=== PATIENT | female | born 1975 | race Two or more races ===

== ENCOUNTER 2019-03-03 09:29 | Emergency (ER) | payer SELFPAY ==
[2019-03-03] MEDS ORDERED: FENTANYL CITRATE INJ/PF 100 MCG/2 ML AMPUL IV ONE (09:58)
[2019-03-03] MEDS ORDERED: ONDANSETRON HCL INJ/PF 4 MG/2 ML SDV IV ONE (09:58)
--- NOTE | 2019-03-03 10:00 | ER Document Report ---
ED Medical Screen (RME) - General Chief Complaint: Abdominal Pain Stated Complaint: STOMACH PAIN Time Seen by Provider: 03/03/19 09:54 Notes: Patient is a 43-year-old female presents to the emergency department for right upper quadrant and epigastric abdominal pain. States 1 week ago she had bad pain for about a day. States pain is somewhat subsided and then returned to the last 24 hours. Patient is also complaining of generalized nausea. Patient is denying any vomiting or diarrhea, denies fever, denies dysuria. GENERAL: Alert, interacts well. No acute distress. ABDOMEN: Soft, Non-distended. Bowel sounds present in all 4 quadrants. Generalized right upper quadrant and epigastric abdominal pain noted. I have greeted and performed a rapid initial assessment of this patient. A comprehensive ED assessment and evaluation of the patient, analysis of test results and completion of the medical decision making process will be conducted by additional ED providers. I have specifically instructed the patient or family members with the patient to immediately return to any nursing staff should anything change in the patient's condition or with their chief complaint. This medical record was dictated with voice recognizing software. There may be grammatical, syntax errors that are unintended. TRAVEL OUTSIDE OF THE [place] IN LAST 30 DAYS: No - Related Data Allergies/Adverse Reactions: No Known Allergies Allergy (Verified 01/28/16 16:18) Past Medical History - Social History Family history: DM Pulmonary Medical History: Reports: Hx Asthma - Immunizations Hx Diphtheria, Pertussis, Tetanus Vaccination: No Physical Exam - Vital signs Vitals: Temp Pulse Resp BP Pulse Ox 97.5 F 60 18 101/52 L 95 03/03/19 09:37 03/03/19 09:37 03/03/19 09:37 03/03/19 09:37 03/03/19 09:37 Course - Vital Signs Vital signs: Temp Pulse Resp BP Pulse Ox 97.5 F 60 18 101/52 L 95 03/03/19 09:37 03/03/19 09:37 03/03/19 09:37 03/03/19 09:37 03/03/19 09:37
[2019-03-03 10:33] LABS: ABSOLUTE BASOPHILS # (AUTO) 0.1 10^3/uL (0.0-0.2); ABSOLUTE EOSINOPHILS # (AUTO) 0.3 10^3/uL (0.0-0.6); ABSOLUTE LYMPHOCYTES (AUTO) 2.2 10^3/uL (0.5-4.7); ABSOLUTE MONOCYTES (AUTO) 0.7 10^3/uL (0.1-1.4); ABSOLUTE NEUT (AUTO) 6.6 10^3/uL (1.7-8.2); BASOPHILS % (AUTO) 0.8 % (0-2); EOSINOPHILS % (AUTO) 2.6 % (0-6); HEMATOCRIT 43.3 % (36.0-47.0); HEMOGLOBIN 14.8 g/dL (12.0-15.5); MEAN CORPUSCULAR HEMOGLOBIN 30.3 pg (27.0-33.4); MEAN CORPUSCULAR HGB CONC 34.1 g/dL (32.0-36.0); MEAN CORPUSCULAR VOLUME 89 fl (80-97); MONOCYTES % (AUTO) 7.5 % (3-13); PLATELET COUNT 416 10^3/uL (150-450); RED BLOOD COUNT 4.88 10^6/uL (3.72-5.28); RED CELL DISTRIBUTION WIDTH 13.7 % (11.5-14.0); SEGMENTED NEUTROPHILS % (AUTO) 67.1 % (42-78); TOTAL CELLS COUNTED % (AUTO) 100 %; WHITE BLOOD COUNT 9.9 10^3/uL (4.0-10.5)
[2019-03-03 10:39] LABS: APPEARANCE,URINE SLIGHTLY-CLOUDY; BILIRUBIN,URINE NEGATIVE (NEGATIVE); COLOR,URINE YELLOW; GLUCOSE, URINE NEGATIVE (NEGATIVE); KETONES,URINE NEGATIVE (NEGATIVE); LEUKOCYTE ESTERASE,URINE NEGATIVE (NEGATIVE); NITRITE,URINE NEGATIVE (NEGATIVE); PROTEIN,URINE NEGATIVE (NEGATIVE); URINE SPECIFIC GRAVITY 1.021; UROBILINOGEN,URINE NEGATIVE mg/dL (<2.0)
[2019-03-03 11:01] LABS: ALANINE AMINOTRANSFERASE 22 U/L (9-52); ALBUMIN 4.6 g/dL (3.5-5.0); ALKALINE PHOSPHATASE 106 U/L (38-126); ANION GAP 8 (5-19); ASPARTATE AMINO TRANSFERASE 29 U/L (14-36); BILIRUBIN,DIRECT 0.2 mg/dL (0.0-0.4); BILIRUBIN,TOTAL 0.5 mg/dL (0.2-1.3); BLOOD UREA NITROGEN 20 mg/dL (7-20); CALCIUM 9.1 mg/dL (8.4-10.2); CARBON DIOXIDE 26 mmol/L (22-30); CHLORIDE 106 mmol/L (98-107); GLUCOSE 126 mg/dL (75-110); POTASSIUM 3.9 mmol/L (3.6-5.0); TOTAL PROTEIN 8.2 g/dL (6.3-8.2)
--- NOTE | 2019-03-03 11:07 | ER Document Report ---
ED General - General Chief Complaint: Abdominal Pain Stated Complaint: STOMACH PAIN Time Seen by Provider: 03/03/19 09:54 TRAVEL OUTSIDE OF THE [place] IN LAST 30 DAYS: No - HPI Notes: Patient is a 43-year-old female who presents to the emergency department for evaluation of abdominal and back pain. She states is been going on for the last 3 days, seems to be worse over the last 24 hours. She has had some associated nausea but no vomiting. Nothing seems to make the pain worse. She states that mildly reclining, with her fist in her back, seems to make her pain better. She denies any fevers or chills. Normal bowel movements. No urinary symptoms. No vaginal discharge. She states the pain is sharp and cramping, currently rates it a 4 out of 5. - Related Data Allergies/Adverse Reactions: No Known Allergies Allergy (Verified 01/28/16 16:18) Past Medical History - General Information source: Patient - Social History Smoking Status: Never Smoker Chew tobacco use (# tins/day): No Frequency of alcohol use: None Drug Abuse: None Family History: Reviewed & Not Pertinent Patient has suicidal ideation: No Patient has homicidal ideation: No Pulmonary Medical History: Reports: Hx Asthma Renal/ Medical History: Denies: Hx Peritoneal Dialysis - Immunizations Hx Diphtheria, Pertussis, Tetanus Vaccination: No Review of Systems - Review of Systems Constitutional: No symptoms reported EENT: No symptoms reported Cardiovascular: No symptoms reported Respiratory: No symptoms reported Gastrointestinal: See HPI Genitourinary: No symptoms reported Female Genitourinary: No symptoms reported Musculoskeletal: No symptoms reported Skin: No symptoms reported Neurological/Psychological: No symptoms reported Physical Exam - Vital signs Vitals: Temp Pulse Resp BP Pulse Ox 97.5 F 60 18 101/52 L 95 03/03/19 09:37 03/03/19 09:37 03/03/19 09:37 03/03/19 09:37 03/03/19 09:37 - Notes Notes: Vital signs reviewed, please refer to chart. Head is normocephalic, atraumatic. Pupils equal round, reactive to light. Neck is supple without meningismus. Heart is regular rate and rhythm. Lungs are clear to auscultation bilaterally. Abdomen is soft, minimal epigastric and moderate right upper quadrant tenderness without rebound or guarding, normoactive bowel sounds throughout. Extremities without cyanosis, clubbing. Posterior calves are nontender. Peripheral pulses are equal. Skin is warm and dry. Patient is awake, alert, neurological exam is nonfocal. Course - Re-evaluation Re-evalutation: 03/03/19 12:38 Patient presents emergency department for evaluation of epigastric and right upper quadrant pain. Laboratory investigations were obtained. Ultrasound was ordered as well. Patient was feeling improved after pain medication. Laboratory investigations did not reveal any elevated faded LFTs or signs of infection. Ultrasound failed to reveal any dilation of the CBD, signs of common bile duct stones, or signs of cholecystitis. On serial abdominal exams patient is tender but nonsurgical. We had a lengthy discussion regarding gallstones, dietary changes, and evaluation for cholecystectomy. She has no signs of infection or obstruction at this time. She is given a list of these signs, including but not limited to fever, increased pain, yellowing of the skin or eyes, tea colored urine. She is told if she experiences any of the symptoms she needs to return immediately. She voiced understanding. Otherwise I will give her a referral on to [facility], as well as Dr. Bosch, our on-c all surgeon. We will send her home with Liudmila. She is to follow-up next week, return to the ED with worsening or new concerning symptoms of any sort. - Vital Signs Vital signs: Temp Pulse Resp BP Pulse Ox 97.5 F 60 18 101/52 L 95 03/03/19 09:37 03/03/19 09:37 03/03/19 09:37 03/03/19 09:37 03/03/19 09:37 - Laboratory Result Diagrams: 03/03/19 10:17 03/03/19 10:17 Laboratory results interpreted by me: 03/03/19 03/03/19 10:17 10:17 Creatinine 0.51 L Glucose 126 H Urine Blood SMALL H - Diagnostic Test Radiology reviewed: Reports reviewed Radiology results interpreted by co: 03/03/19 12:35 Abdomen Ultrasound 03/03/19 09:57 IMPRESSION: Gallstones. No gallbladder wall thickening. No pericholecystic fluid. No biliary ductal dilation. Negative sonographic Whitten's sign. HIDA may be used to further evaluate patency of the cystic and common bile ducts if desired. Discharge - Discharge Clinical Impression: Upper abdominal pain Cholelithiasis Qualifiers: Cholelithiasis location: gallbladder Cholecystitis presence: without cholecystitis Biliary obstruction: without biliary obstruction Qualified Code(s): K80.20 - Calculus of gallbladder without cholecystitis without obstruction Condition: Stable Disposition: HOME, SELF-CARE Instructions: Abdominal Pain ([facility]), Antispasmodics ([facility]), Gallbladder Disease ([facility]) Additional Instructions: Take medications as needed. Try to avoid fatty and greasy foods. You should follow-up with primary care and/or surgery to have evaluation to have your gallbladder removed. If you develop fever, increased pain, yellowing of the skin or eyes, or any other new or concerning symptoms, return immediately to the emergency department for reevaluation. Prescriptions: Ondansetron HCl [Zofran 8 mg Tablet] 8 mg PO Q8HP PRN #30 tablet PRN Reason: Nausea Dicyclomine HCl [Bentyl 20 mg Tablet] 20 mg PO QID PRN #40 tablet PRN Reason: Pain Scale Of 4 Ref[facility]: [facility] [NO LOCAL MD] - Follow up as needed ELISEO BOSCH MD [YAY[facility]ECKWITH] - Follow up as needed
--- NOTE | 2019-03-03 11:18 | RADIOLOGY REPORT (SQ) ---
EXAM DESCRIPTION: U/S ABDOMEN LIMITED W/O DOP COMPLETED DATE/TIME: 03/03/2019 11:01 am REASON FOR STUDY: RUQ pain COMPARISON: None. TECHNIQUE: Dynamic and static grayscale images acquired of the abdomen and recorded on PACS. Additio nal selected color Doppler and spectral images recorded. LIMITATIONS: None. FINDINGS: PANCREAS: No masses. Visualized pancreatic duct normal caliber. LIVER: No masses. Echotexture normal. LIVER VASCULATURE: Normal directional flow of the main portal vein and hepatic veins. GALLBLADDER: Shadowing gallstones. Normal wall thickness. No pericholecystic fluid. ULTRASOUND-DETECTED WHITTEN'S SIGN: Negative. INTRAHEPATIC DUCTS AND COMMON DUCT: CBD and intrahepatic ducts normal caliber. No filling defects. INFERIOR VENA CAVA: Normal flow. AORTA: No aneurysm. RIGHT KIDNEY: Normal size. Normal echogenicity. No solid or suspicious masses. No hydronephrosis. No calcifications. PERITONEAL AND RIGHT PLEURAL SPACE: No ascites or effusions. OTHER: No other significant findings. IMPRESSION: Gallstones. No gallbladder wall thickening. No pericholecystic fluid. No biliary duct al dilation. Negative sonographic Whitten's sign. HIDA may be used to further evaluate patency of th e cystic and common bile ducts if desired. TECHNICAL DOCUMENTATION: JOB ID: [id number] [employer]- All Rights Reserved Reading location - IP/workstation name: [email or web address]
[2019-03-03 13:28] VITALS: BP 99/70
== END 2019-03-03 13:28 | disposition home or self-care (01) ==
LOC: ER 09:29
DX: K80.20 Calculus of gallbladder without cholecystitis without obstruction (principal); R10.10 Upper abdominal pain, unspecified; R11.0 Nausea; M54.9 Dorsalgia, unspecified
CPT/HCPCS: 99284; 96374; 96375; 36415; 84702; 83690; 85025; 80053; 81001; 76705; J3010; J2405

== ENCOUNTER 2019-04-07 11:22 | Day surgery (SDC) | payer OTHER ==
[2019-03-31 09:51] LABS: HEMATOCRIT 40.5 % (36.0-47.0); HEMOGLOBIN 13.6 g/dL (12.0-15.5); MEAN CORPUSCULAR HEMOGLOBIN 29.6 pg (27.0-33.4); MEAN CORPUSCULAR HGB CONC 33.5 g/dL (32.0-36.0); MEAN CORPUSCULAR VOLUME 88 fl (80-97); PLATELET COUNT 330 10^3/uL (150-450); RED BLOOD COUNT 4.59 10^6/uL (3.72-5.28); RED CELL DISTRIBUTION WIDTH 13.4 % (11.5-14.0)
--- NOTE | 2019-03-31 10:09 | RADIOLOGY REPORT (SQ) ---
EXAM DESCRIPTION: CHEST PA/LATERAL COMPLETED DATE/TIME: 03/31/2019 9:20 am REASON FOR STUDY: pre-op COMPARISON: None. EXAM PARAMETERS: NUMBER OF VIEWS: two views TECHNIQUE: Digital Frontal and Lateral radiographic views of the chest acquired. RADIATION DOSE: NA LIMITATIONS: none FINDINGS: LUNGS AND PLEURA: No opacities, masses or pneumothorax. No pleural effusion. MEDIASTINUM AND HILAR STRUCTURES: No masses or contour abnormalities. HEART AND VASCULAR STRUCTURES: Heart normal size. No evidence for failure. BONES: No acute findings. HARDWARE: None in the chest. OTHER: No other significant finding. IMPRESSION: NO SIGNIFICANT RADIOGRAPHIC FINDING IN THE CHEST. TECHNICAL DOCUMENTATION: JOB ID: [id number] [employer]- All Rights Reserved Reading location - IP/workstation name: [email or web address]
[2019-03-31 10:19] LABS: ALBUMIN 4.2 g/dL (3.5-5.0); ALKALINE PHOSPHATASE 96 U/L (38-126); AMYLASE 75 U/L (30-110); ANION GAP 8 (5-19); ASPARTATE AMINO TRANSFERASE 43 U/L (14-36); BILIRUBIN,DIRECT 0.3 mg/dL (0.0-0.4); BILIRUBIN,TOTAL 0.3 mg/dL (0.2-1.3); BLOOD UREA NITROGEN 12 mg/dL (7-20); CALCIUM 9.4 mg/dL (8.4-10.2); CARBON DIOXIDE 27 mmol/L (22-30); CHLORIDE 104 mmol/L (98-107); GLUCOSE 103 mg/dL (75-110); POTASSIUM 3.7 mmol/L (3.6-5.0); TOTAL PROTEIN 7.2 g/dL (6.3-8.2)
[~2019-04-07 11:22] MED LIST: ACETAMINOPHEN 325 MG TABLET PO PRN; ALBUTEROL SULFATE 0.083% NEB 2.5 MG/3 ML AMPUL NEB PRN; BUPIVACAINE HCL 0.25% /EPINEPHRINE INJ/PF 30 ML SDV ONE; CEFAZOLIN 1 GM/D5W RTU 1 GM/50 ML RTUPB IV PRN; DEXAMETHASONE SOD PHOSPHATE INJ 4 MG/1 ML VIAL ONE; GLYCOPYRROLATE 1 MG/5 ML VIAL ONE; LACTATED RINGERS 1000 ML IV PRN; LIDOCAINE 0.5% INJ-PF (5 MG/ML) 50 ML SDV SUBCUT PRN; LIDOCAINE 2% INJ-PF (20 MG/ML) 2 ML AMPUL ONE; METRONIDAZOLE 500 MG/NS RTU 500 MG/100 ML RTUPB IV PRN; NEOSTIGMINE METHYLSULFATE 10 MG/10 ML VIAL ONE; ONDANSETRON HCL INJ/PF 4 MG/2 ML SDV ONE; ROCURONIUM BROMIDE INJ 50 MG/5 ML VIAL IV ONE
[2019-04-07] MEDS ORDERED: CEFAZOLIN INJ 1 GM VIAL ONE (11:29)
[2019-04-07] MEDS ORDERED: METRONIDAZOLE 500 MG/NS RTU 500 MG/100 ML RTUPB IV ONE (11:29)
[2019-04-07] MEDS ORDERED: SCOPOLAMINE HYDROBROMIDE 1.5 MG PATCH.TD72 ONE (11:44)
[2019-04-07] MEDS ORDERED: FAMOTIDINE INJ/PF 20 MG/2 ML SDV IV ONE (11:45)
[2019-04-07] MEDS ORDERED: RINGERS SOLUTION,LACTATED 1,000 ML IV ONE (12:00)
[2019-04-07] MEDS ORDERED: ALBUTEROL SULFATE 0.083% NEB 2.5 MG/3 ML AMPUL NEB ONE (12:09)
[2019-04-07] MEDS ORDERED: FENTANYL CITRATE INJ/PF 250 MCG/5 ML AMPULE ONE (12:22)
[2019-04-07] MEDS ORDERED: PROPOFOL INJ 200 MG/20 ML VIAL IV ONE (12:22)
[2019-04-07] MEDS ORDERED: MIDAZOLAM 2 MG/2 ML INJ ONE (12:22)
[2019-04-07] MEDS ORDERED: OXYCODONE-ACETAMINOPHEN 5-325 MG TABLET PO PRN ×5 (13:36→14:28)
--- NOTE | 2019-04-07 13:39 | Discharge Summary ---
Discharge Summary (SDC) - Discharge Final Diagnosis: cholelithiasis Date of Surgery: 04/07/19 Discharge Date: 04/07/19 Condition: Good Discharge Diet: As Tolerated Discharge Activity: Activity As Tolerated, No Lifting Over 10 Pounds Report the Following to Your Physician Immediately: Vomiting, Increase in Pain, Signs of Hyperglycemia, Fever over 101 Degrees, Unusual Bleeding - needs f/u in 7-10 days
[2019-04-07] MEDS ORDERED: MEPERIDINE HCL/PF INJ 25 MG/1 ML DISP.SYRIN IV PRN ×2 (13:42→14:28)
[2019-04-07] MEDS ORDERED: FENTANYL CITRATE INJ/PF 100 MCG/2 ML AMPUL IV PRN ×6 (13:42→14:28)
[2019-04-07] MEDS ORDERED: DIPHENHYDRAMINE HCL 50 MG/ML VIAL IV PRN ×2 (13:42→14:28)
[2019-04-07] MEDS ORDERED: PROMETHAZINE HCL INJ 25 MG/1 ML VIAL IV PRN ×4 (13:42→14:28)
--- NOTE | 2019-04-07 13:53 | Operative Report ---
Nonrecallable Operative Report DATE OF SURGERY: 04/07/19 PREOPERATIVE DIAGNOSIS: Cholelithiasis POSTOPERATIVE DIAGNOSIS: Cholelithiasis OPERATION: laparoscopoic cholecystectomy SURGEON: ANTWON DE LEÓN 1ST TOUR DRIVER: NERY HURD ANESTHESIA: GA TISSUE REMOVED OR ALTERED: Gallbladder COMPLICATIONS: None ESTIMATED BLOOD LOSS: 25 cc INTRAOPERATIVE FINDINGS: See procedure note PROCEDURE: Patient was brought to the operating room awake alert in stable condition placed in the operative table supine position induced under general anesthesia and intubated the abdomen was prepped and draped in usual sterile manner for the procedure. After appropriate timeout and site verification the varies needle was placed into the umbilicus and the abdomen was insufflated with 6 L of CO2 gas. Infraumbilical 10 mm incision was made with a 15 blade and a 10 mm port was placed into the abdominal cavity. Intra-abdominal visualization revealed no evidence of a varies needle or trocar injury. 5 mm port was placed in the epigastrium and two 5 mm ports on the right abdominal wall. The gallbladder was collapsed grasped and placed on traction the hepatoduodenal ligament was dissected isolated the cystic duct and cystic artery. 2 endoclips placed in the stay side one the specimen side of both the structures they were divided the gallbladder was then dissected out of the liver bed with Bovie cautery placed in an Endobag and removed through the umbilical port site. Hemostasis of the liver bed was obtained with Bovie cautery. Once we had good hemostasis the right upper quadrant was irrigated normal saline suctioned dry. The ports were removed the pneumoperitoneum reduced the umbilical fascial defect was closed with 0 Vicryl and then all 4 skin incisions were closed with intracuticular 4-0 Biosyn Steri-Strips completed the procedure. Estimated blood loss for the procedure was 25 cc sponge needle counts were correct x2. Nery DICKSON was present for the entire procedure for help with wound retraction wound closure.
[2019-04-07] MEDS ORDERED: FENTANYL CITRATE INJ/PF 100 MCG/2 ML AMPUL ONE (13:59)
[2019-04-07] MEDS ORDERED: ACETAMINOPHEN 1,000 MG/100 ML RTUPB IV ONE (14:36)
[2019-04-07 15:57] VITALS: BP 106/67
== END 2019-04-07 16:30 | disposition home or self-care (01) ==
LOC: OROUT 11:22
PROVIDERS: ATTEND Surgery
DX: K80.10 Calculus of gallbladder with chronic cholecystitis without obstruction (principal); J45.909 Unspecified asthma, uncomplicated; Z79.51 Long term (current) use of inhaled steroids
CPT/HCPCS: 86900 ×2; 86901 ×2; 36415 ×2; 86850 ×2; 82150; 85027; 81025; 80076; 80048; 88304 ×2; 71046; 00790; 47562; J2250; J3490 ×5; J0690; J1100; J3010; J2710; J2405; J2704; S0028; J0131; 790